=== PATIENT | male | born 1990 | race Caucasian/White ===

== ENCOUNTER 2023-01-26 20:50 | Emergency (ER) | payer BC, OTHER, SELFPAY ==
[2023-01-26 20:56] VITALS: BP 132/76; PULSE 124; RESP 14; TEMP 38.2; O2SAT 94; BMI 33.5
--- NOTE | 2023-01-26 21:04 | ED_ITS ---
HPI - General Adult General Chief complaint: Upper Respiratory Infection Stated complaint: URTI, FEVER Time Seen by Provider: 01/26/23 21:04 Source: patient Mode of arrival: walk-in Limitations: no limitations History of Present Illness HPI narrative: This otherwise healthy 32-year-old male presents for evaluation of a fever and sore throat. Symptoms started yesterday. He states he has pain with swallowing. He states that his was sick several days ago with a fever and sore throat. Her symptoms resolved. He denies any headache, neck pain or stiffness. He denies any chest pain or shortness of breath. He states he is mildly nauseated. He has not vomited. He has not had any diarrhea. He does not have any skin rash. He took ibuprofen approximately half an hour prior to coming to the emergency department. He has not had any Tylenol. Onset (ago): day(s) (2) Related Data Allergies Allergy/AdvReac Type Severity Reaction Status Date / Time No Known Drug Allergies Allergy Verified 01/26/23 20:56 Review of Systems ROS Status of ROS 10 or more systems reviewed and unremarkable except as noted in history and below [facility] Social History Smoking status: Former smoker Exam Narrative Exam Narrative: Nurses note and vital signs reviewed; Patient is febrile with a temperature of 100.8, tachycardic at 124, blood pressure is mildly elevated at 132/76, he is not hypoxic with pulse ox of 94 percent on room air General: Nontoxic but mildly ill-appearing male, he is pale and diaphoretic, no respiratory distress, speech is clear, there is no drooling Skin: Warm to the touch and diaphoretic, no skin rash noted Head: Normocephalic, atraumatic Eye: Normal conjunctiva, no drainage, EOMI. PERRL, No conjunctival injection Ears, Nose, Mouth, and Throat: Oral mucosa is moist. There is posterior pha ryngeal erythema with no exudate. There is an approximately 1 x 1 cm area on the right tonsil that may be developing peritonsillar abscess. This does not abut the uvula. Uvula is midline and normal in appearance. There is no swelling of the tongue, uvula or pharyngeal soft tissues. Airway is intact. There is no trismus or drooling. There is no pooling of secretions in the oropharynx. Cardiovascular: Regular Rate and Rhythm, Tachycardic upon arrival with a pulse of 124 Respiratory: Patient is in no distress, no accessory muscle use, lungs are clear to auscultation, no wheezing, rales or rhonchi Back: non-tender, no CVA tenderness bilaterally to percussion. GI: Normal bowel sounds, no tenderness to palpation, no masses appreciated. No rebound, guarding, or rigidity noted. Musculoskeletal: The patient has no evidence of calf tenderness, no pitting edema, symmetrical pulses noted bilaterally Neurological: A&O x4, normal speech Psychiatric: Cooperative Constitutional Vital Signs, click to edit/add: Last Vital Signs Temp 100.8 F H 01/26/23 21:25 Pulse 124 H 01/26/23 20:56 Resp 14 01/26/23 20:56 BP 132/76 H 01/26/23 20:56 Pulse Ox 97 01/26/23 21:13 O2 Del Method Room Air 01/26/23 21:13 Course Vital Signs Vital signs: Vital Signs Temperature 100.8 F H 01/26/23 20:56 Pulse Rate 124 H 01/26/23 20:56 Respiratory Rate 14 01/26/23 20:56 Blood Pressure 132/76 H 01/26/23 20:56 Pulse Oximetry 94 L 01/26/23 20:56 Temperature 100.8 F H 01/26/23 21:25 Pulse Rate 124 H 01/26/23 20:56 Respiratory Rate 14 01/26/23 20:56 Blood Pressure 132/76 H 01/26/23 20:56 Pulse Oximetry 97 01/26/23 21:13 Oxygen Delivery Method Room Air 01/26/23 21:13 Medical Decision Making [facility] Narrative Medical decision making narrative: This 32-year-old male presents for evaluation of fevers, chills, body aches and sore throat. His was sick several days ago with similar symptoms but has recovered. He had taken ibuprofen prior to arrival and upon arrival his temperature was 100.8. He was tachycardic and diaphoretic. He states that he is having pain with swallowing. He does have marked pharyngeal erythema and a questionable 1 cm developing peritonsillar abscess on the right tonsil. There is no sign of fluctuance. This is not abutting the uvula. It is unclear if this is a normal enlarged tonsil for this patient or a developing abscess. I did discuss this with him. Due to his clinical presentation and the possibility of a developing abscess an IV was placed and routine labs are ordered. He has a normal white count and hemoglobin. His electrolytes are normal. His strep test was positive. He was medicated with IV fluids, 50 mg of IV Toradol, 650 mg of oral Tylenol and 900 mg of IV clindamycin and on re-evaluation, he is feeling much better and tolerating clear fluids. I encouraged him to follow up closely with his family physician and monitor the swelling on the right tonsil at home. He will be given referral information for Dr. Mathew if it does appear that he is developing a peritonsillar abscess. Lab Data Labs: Lab Results 01/26/23 01/26/23 Range/Units 21:00 21:11 WBC 10.1 (4.0-11.0) 10^3/uL RBC 4.75 (4.70-6.10) 10^6/uL Hgb 15.2 (14.0-18.0) g/dL Hct 41.9 L (42.0-54.0) % MCV 88.2 (80.0-94.0) fL MCH 32.0 (25.9-34.0) pg MCHC 36.3 H (29.9-35.2) g/dL RDW 11.7 (11.0-15.0) % Plt Count 225 (150-450) 10^3/uL MPV 9.3 L (9.5-13.5) fL Neut % (Auto) 77.0 H (43.0-75.0) % Lymph % (Auto) 13.8 L (20.5-60.0) % [place] % (Auto) 8.7 (1.7-12.0) % Eos % (Auto) 0.1 L (0.9-7.0) % Baso % (Auto) 0.2 (0.2-2.0) % Neut # (Auto) 7.7 H (1.4-6.5) 10^3/uL Lymph # (Auto) 1.4 (1.2-3.8) 10^3/uL [place] # (Auto) 0.9 H (0.3-0.8) 10^3/uL Eos # (Auto) 0.0 (0.0-0.7) 10^3/uL Baso # (Auto) 0.0 (0.0-0.1) 10^3/uL Abs Immat Gran (auto) 0.02 (0.00-0.03) 10^3/uL Imm/Tot Granulo (auto) 0.2 (0.0-0.5) % Sodium 136 (136-145) mmol/L Potassium 3.7 (3.5-5.1) mmol/L Chloride 101 (98-107) mmol/L Carbon Dioxide 24.6 (21.0-32.0) mmol/L Anion Gap 14.1 BUN 8.0 (7.0-18.0) mg/dL Creatinine 1.18 (0.70-1.30) mg/dL Est GFR ( Amer) >60 (>=60) Est GFR (Non-Af Amer) >60 (>=60) BUN/Creatinine Ratio 6.8 Glucose 124 H (74-106) mg/dL Calcium 8.7 (8.5-10.1) mg/dL Total Bilirubin 0.8 (0.2-1.0) mg/dL AST 17 (15-37) U/L ALT 23 (16-63) U/L Alkaline Phosphatase 73 (46-116) U/L Total Protein 7.8 (6.4-8.2) g/dL Albumin 4.1 (3.4-5.0) g/dL Globulin 3.7 g/dL Albumin/Globulin Ratio 1.1 Monoscreen Negative (NEGATIVE) Streptococcus Screen Positive A Discharge Plan Discharge Chief Complaint: Upper Respiratory Infection Clinical Impression: Abscess, peritonsillar, Acute streptococcal pharyngitis Patient Disposition: Home, Self-Care Time of Disposition Decision: 21:55 Condition: Good Additional Instructions: If the swelling on the right tonsil gets worse or you do not improve in 36-48 hours, please return to the ER and/or call Dr Mathew, ENT, Stand Alone Forms: Portal Instructions Referrals: VIOLETTE TUCKER [Primary Care Provider] - 01/28/23
[2023-01-26 21:13] VITALS: O2SAT 97
[2023-01-26 21:24] VITALS: TEMP 38.2
[2023-01-26 21:24] LABS: Internal Control Within Normal Limits; Strep A Antigen Screen Positive
[2023-01-26] MEDS: KETOROLAC TROMETHAMINE 30 MG/ML VIAL 15 MG IVP (21:24)
[2023-01-26] MEDS: DEXAMETHASONE SODIUM PHOSPHATE 10 MG/ML VIAL IV (21:24)
[2023-01-26 21:25] VITALS: TEMP 38.2
[2023-01-26] MEDS: ACETAMINOPHEN 325 MG TABLET 650 MG PO (21:25)
[2023-01-26] MEDS: 0.9 % SODIUM CHLORIDE 1,000 ML 1000 ML IV (21:25)
[2023-01-26] MEDS: CLINDAMYCIN PHOSPHATE/D5W 900 MG/50 ML PIGGYBACK 100 MG IV (21:25)
[2023-01-26 21:27] LABS: Basophils Percent Auto 0.2 % (0.2-2.0); Eosinophils Percent Auto 0.1 % (0.9-7.0); Hematocrit 41.9 % (42.0-54.0); Hemoglobin 15.2 g/dL (14.0-18.0); Immature Granulocytes Abs Auto 0.02 10^3/uL (0.00-0.03); Immature Granulocytes Pct Auto 0.2 % (0.0-0.5); Lymphocytes Absolute Auto 1.4 10^3/uL (1.2-3.8); Lymphocytes Percent Auto 13.8 % (20.5-60.0); Mean Corpuscular HGB Conc 36.3 g/dL (29.9-35.2); Mean Corpuscular Volume 88.2 fL (80.0-94.0); Mean Platelet Volume 9.3 fL (9.5-13.5); Monocytes Absolute Auto 0.9 10^3/uL (0.3-0.8); Monocytes Percent Auto 8.7 % (1.7-12.0); Neutrophils Absolute Auto 7.7 10^3/uL (1.4-6.5); Platelet Count 225 10^3/uL (150-450); Red Blood Count 4.75 10^6/uL (4.70-6.10); Red Cell Distribution Width 11.7 % (11.0-15.0); White Blood Count 10.1 10^3/uL (4.0-11.0)
[2023-01-26 21:37] LABS: Alanine Aminotransferase 23 U/L (16-63); Albumin Globulin Ratio 1.1; Albumin Level 4.1 g/dL (3.4-5.0); Alkaline Phosphatase 73 U/L (46-116); Anion Gap 14.1; Aspartate Amino Transferase 17 U/L (15-37); BUN Creatinine Ratio 6.8; Bilirubin Total 0.8 mg/dL (0.2-1.0); Calcium 8.7 mg/dL (8.5-10.1); Carbon Dioxide 24.6 mmol/L (21.0-32.0); Chloride 101 mmol/L (98-107); Estimated GFR (African America >60 (>=60); Estimated GFR (Non-African Ame >60 (>=60); Globulin 3.7 g/dL; Glucose 124 mg/dL (74-106); Potassium 3.7 mmol/L (3.5-5.1); Sodium 136 mmol/L (136-145); Total Protein 7.8 g/dL (6.4-8.2)
[2023-01-26 21:40] LABS: Mono Screen NEGATIVE (NEGATIVE)
[2023-01-26 22:27] VITALS: TEMP 37.2
== END 2023-01-26 22:28 | disposition home or self-care (01) ==
PROVIDERS: Emergency Provider Emergency Medicine; PCP Nurse Practitioner Family
DX: J36 Peritonsillar abscess (principal); B95.5 Unspecified streptococcus as the cause of diseases classified elsewhere; Z87.891 Personal history of nicotine dependence; R50.9 Fever, unspecified
CPT/HCPCS: 36415; 80053; 85025; 86308; 87880; 96365; 96375; 99285; J1100

== ENCOUNTER 2023-02-03 08:57 | Outpatient (OUT) | payer BC, OTHER, SELFPAY ==
[2023-02-03 10:15] LABS: Basophils Percent Auto 0.5 % (0.2-2.0); Eosinophils Absolute Auto 0.1 10^3/uL (0.0-0.7); Eosinophils Percent Auto 1.9 % (0.9-7.0); Hematocrit 43.9 % (42.0-54.0); Hemoglobin 15.5 g/dL (14.0-18.0); Immature Granulocytes Abs Auto 0.09 10^3/uL (0.00-0.03); Immature Granulocytes Pct Auto 1.4 % (0.0-0.5); Lymphocytes Absolute Auto 3.4 10^3/uL (1.2-3.8); Lymphocytes Percent Auto 52.4 % (20.5-60.0); Mean Corpuscular HGB Conc 35.3 g/dL (29.9-35.2); Mean Corpuscular Hemoglobin 32.2 pg (25.9-34.0); Mean Corpuscular Volume 91.1 fL (80.0-94.0); Mean Platelet Volume 9.1 fL (9.5-13.5); Monocytes Absolute Auto 0.6 10^3/uL (0.3-0.8); Monocytes Percent Auto 9.1 % (1.7-12.0); Neutrophils Absolute Auto 2.2 10^3/uL (1.4-6.5); Neutrophils Percent Auto 34.7 % (43.0-75.0); Platelet Count 345 10^3/uL (150-450); Red Blood Count 4.82 10^6/uL (4.70-6.10); Red Cell Distribution Width 12.1 % (11.0-15.0); White Blood Count 6.4 10^3/uL (4.0-11.0)
[2023-02-03 10:16] LABS: Estimated Average Glucose 85 mg/dL; Glycohemoglobin A1C 4.6 % (4.5-6.2)
[2023-02-03 12:40] LABS: Alanine Aminotransferase 14 U/L (16-63); Albumin Globulin Ratio 1.2; Albumin Level 3.9 g/dL (3.4-5.0); Alkaline Phosphatase 59 U/L (46-116); Anion Gap 10.9; Aspartate Amino Transferase 14 U/L (15-37); BUN Creatinine Ratio 14.3; Bilirubin Total 0.5 mg/dL (0.2-1.0); Calcium 8.9 mg/dL (8.5-10.1); Carbon Dioxide 27.8 mmol/L (21.0-32.0); Chloride 104 mmol/L (98-107); Chol HDL Ratio 3.9; Cholesterol 158 mg/dL (<=200); Estimated GFR (African America >60 (>=60); Estimated GFR (Non-African Ame >60 (>=60); Globulin 3.3 g/dL; Glucose 90 mg/dL (74-106); HDL Cholesterol 41 mg/dL (40-60); Potassium 3.7 mmol/L (3.5-5.1); Sodium 139 mmol/L (136-145); Total Protein 7.2 g/dL (6.4-8.2); Triglycerides 261 mg/dL (<=150); VLDL CHOLESTEROL 52.2 mg/dL
[2023-02-04 06:09] LABS: HCV Ab Non Reactive (Non Reactive); HIV Ab/p24 Ag Screen Non Reactive (Non Reactive)
[2023-02-09 14:20] LABS: Free Testosterone(Direct) 9.9 pg/mL (8.7-25.1); Testosterone 423 ng/dL (264-916)
== END 2023-02-03 08:58 | disposition home or self-care (01) ==
LOC: LAB 08:57
PROVIDERS: PCP Nurse Practitioner Primary Care; Visit Provider Nurse Practitioner Primary Care
DX: Z00.00 Encounter for general adult medical examination without abnormal findings (principal); Z13.6 Encounter for screening for cardiovascular disorders; Z11.59 Encounter for screening for other viral diseases; Z11.4 Encounter for screening for human immunodeficiency virus [HIV]; Z79.890 Hormone replacement therapy; Z51.81 Encounter for therapeutic drug level monitoring
CPT/HCPCS: 36415; 80053; 80061; 83036; 84402; 84403; 85025; 86803; 87389